=== PATIENT | female | born 1930 | race Caucasian/White ===

== ENCOUNTER 2017-10-24 07:48 | Emergency (ER) | payer MEDICARE ==
[~2017-10-24] VITALS: Ht 160 cm; Wt 76.0 kg
[~2017-10-24 07:48] MED LIST: ALLEGRA60 M1 PO; AMOXICILLIN500 MG PO; CIPRO500 MG PO; CIPROFLOXACN500 MG PO; DOXYCYCL HYC100 MG PO; FLONASE NASAL50 MCG; GLUCOSAMINE1000 MG OR; MEDDOSEPAK OR; METRONIDAZOL500 MG PO; MULTIVITAMIN OR; NEXIUM20 M1 PO; QVAR80 MCG IN; ROBITUSSIN AC10 ML PO; SONATA10 M1 OR; ZITHROMAX250 MG PO; ZITHROMAX500 MG PO; ZPAK OR
[2017-10-24] MEDS ORDERED: MOTRIN200 MG PO (08:00)
[2017-10-24] MEDS ORDERED: ULTRAM50 M1 PO (10:23)
[2017-10-24] MEDS ORDERED: MEDDOSEPAK PO (10:23)
[2017-10-24 10:39] VITALS: BP 138/78
== END 2017-10-24 10:52 | disposition home or self-care (01) ==
LOC: ED 07:48
DX: M79.604 Pain in right leg (principal); M25.561 Pain in right knee

== ENCOUNTER 2020-09-10 12:39 | Emergency (ER) | payer MEDICARE ==
[~2020-09-10] VITALS: Ht 160 cm; Wt 90.0 kg
[~2020-09-10 12:39] MED LIST changes: +MEDDOSEPAK PO; +MOTRIN200 MG PO; +ULTRAM50 M1 PO
== END 2020-09-10 15:36 | disposition home or self-care (01) ==
LOC: ED 12:39
DX: M25.511 Pain in right shoulder (principal); S09.90XA Unspecified injury of head, initial encounter; W07.XXXA Fall from chair, initial encounter; Y92.009 Unspecified place in unspecified non-institutional (private) residence as the place of occurrence of the external cause